=== PATIENT | female | born 1945 | race Caucasian/White ===

== ENCOUNTER 2023-07-01 18:41 | Emergency (ER) | payer MEDICARE, BC, SELFPAY ==
[2023-07-01 18:44] VITALS: BP 182/139; BMI 28.2
[2023-07-01 19:13] LABS: Hematocrit 41.7 % (37.0-47.0); Hemoglobin 14.9 g/dL (12.0-16.0); Mean Corp Hgb Conc. 35.7 g/dL (33.0-37.0); Mean Corpuscular Hgb 29.7 pg (27.0-31.0); Mean Corpuscular Volume 83.1 fL (81.0-99.0); Mean Platelet Volume 8.1 fL (7.4-10.4); Platelet Count 188 10^3/uL (130-400); Red Blood Cell Count 5.02 10^6/uL (4.20-5.40); Red Cell Dist. Width 13.6 % (11.5-14.5); White Blood Cell Count 7.8 10^3/uL (4.8-10.8)
[2023-07-01 19:31] LABS: ALT (SGPT) 36 U/L (0-35); AST (SGOT) 48 U/L (14-36); Albumin 4.4 g/dl (3.5-5.0); Alkaline Phosphatase 140 U/L (38-126); Blood Urea Nitrogen 14 mg/dl (7-17); Calcium 9.6 mg/dl (8.4-10.2); Carbon Dioxide 22 mmol/L (22-30); Chloride 105 mmol/L (98-107); Estimated Creatinine Clearance 82 ml/min; Glucose 133 mg/dl (70-99); Potassium 3.8 mmol/L (3.5-5.1); Sodium 134 mmol/L (135-145); Total Bilirubin 0.7 mg/dl (0.2-1.3); Total Protein 7.6 g/dl (6.3-8.2); eGFR > 60.00
[2023-07-01 19:36] LABS: Troponin I < 0.012 ng/ml
[2023-07-01 19:39] LABS: Atypical Lymphocytes 6 %; Lymphocytes 37 % (20-51); Monocytes 4 % (2-9); Normal RBC Morphology Yes; Platelets Checked Yes; Segmented Neutrophils 53 % (42-75); Total Cells Counted 100
[2023-07-01 20:05] LABS: Absolute Neutrophils -Man Diff 4.1 10^3/uL (1.4-6.5); Band Neutrophils 0 % (0-3)
--- NOTE | 2023-07-01 20:58 | ED.GENMED ---
History of Present Illness
<SARAH Brower - Last Filed: 07/01/23 23:59>
General
Chief Complaint: Headache
Source: patient and family
Exam Limitations: dementia
Time Seen by Provider: 07/01/23 20:20
Nursing documentation reviewed up to this point in time: agreed with
Travel History
Have you had any contact with someone who has COVID-19?: No
Do you have any symptoms of coronavirus? Fever > 100 degrees, chills, cough, shortness of breath, sore throat, loss of taste or smell, muscle aches, or headache?: No
History of Present Illness
History of Present Illness:
This is a 78 year old with PMHx HTN presents for intermittent right sided headache x1 week. Her and son are by bedside providing additional history. She reports dull headache starting 1 week ago that comes and goes. She has taken Tylenol
200mg as needed that provides mild relief. She also reports loss of appetite and drinking less water recently. She also reports a rash starting 1 week ago. She describes the rash as initially burning and stinging that were 'blister-like.' They are
located on her R upper thigh, lower middle back, and R buttock. She denies a Shingles vaccine. She also reports working in the [employer] that has known poison adebayo. She reports burning/stinging has now resolved and blisters have crusted. She denies any
blurry vision, NVD, abdominal pain, sudden onset, worst headache of her life, or photophobia. She denies any head injury or trauma.
Past History
<SARAH Brower - Last Filed: 07/01/23 23:59>
Past History
ED Past Medical History: HTN
ED Past Surgical History: Cholecystectomy
Social History
Tobacco: Non-smoker
Personal:
Living: with family
Family History
Family History: Other (Reviewed and noncontributory)
Review of Systems
<SARAH Brower - Last Filed: 07/01/23 23:59>
Review of Systems
Allergies reviewed?: Yes
Other source history: family
All Other Systems: Not applicable
Constitutional: Reports no symptoms
EENT: Reports no symptoms
Respiratory: Reports no symptoms
Cardiac: Reports no symptoms
ABD/GI: Reports anorexia
: Reports no symptoms
Musculoskeletal: Reports no symptoms
Skin: Reports rash
Neurological: Reports headache
Endocrine: Reports no symptoms
Hematologic/Lymphatic: Reports no symptoms
Psychiatric: Reports no symptoms
Phy Exam
<SARAH Brower - Last Filed: 07/01/23 23:59>
General Physical Exam
General Presentation: well appearing and no apparent distress
General Skin: warm and dry
General Habitus: normal
General Mental: alert
General Hydration: appears well hydrated
ENT Exam
ENT Exam: EOMI, pharynx normal, neck supple and normocephalic
Eye Exam
Eye Exam: PERRL, cornea clear and conjunctiva normal
Cardiovascular Exam
Cardiovascular Exam: regular rate/rhythm, no edema, no murmur and normal peripheral pulses
Pulmonary Exam
Pulmonary Exam: lungs clear, no respiratory distress, no rales, no crackles, no rhonchi, no stridor, no wheezing and no cough
Gastrointestinal Exam
Gastrointestinal Exam: normal bowel sounds, non tender, soft, no organomegaly, no pulsatile mass and non distended
Neurological Exam
Neurological Exam: alert, oriented x3, no motor deficits and speech normal
Musculoskeletal Exam
Musculoskeletal Exam: full ROM and no edema
Skin Exam
Skin Exam: normal color, warm/dry and other (Rash with erythematous crusted lesions on R upper anterior and lateral thigh, lower mid back, and R buttock following L3 dermatome)
Psychiatric Exam
Psychiatric Exam: normal mood/affect
Course
<SARAH Brower - Last Filed: 07/01/23 23:59>
Orders/Labs/Results
Orders:
Orders
07/01/23 18:48
Electrocardiogram (*1) Urgent
Reason for Study: Chest Pain
EKG- Treatment ONCE
07/01/23 19:01
Complete Blood Count/With Diff Urgent
Comprehensive Metabolic Panel Urgent
Manual Differential Urgent
Troponin I Urgent
07/01/23 22:22
Prednisone [Deltasone] 40 mg PO NOW STA
Valacyclovir HCl [Valtrex] 1,000 mg PO NOW STA
07/01/23 22:23
Metoprolol [Lopressor] 25 mg PO NOW STA
Abnormal Lab Results
07/01/23
19:01
Sodium 134 L mmol/L
(135-145)
Glucose 133 H mg/dl
(70-99)
AST 48 H U/L
(14-36)
ALT 36 H U/L
(0-35)
Alkaline Phosphatase 140 H U/L
(38-126)
07/01/23 19:01
07/01/23 19:01
Vital Signs
Initial and Last Documented VS:
Initial Vital Signs
Temp Pulse Resp BP Pulse Ox
98.4 F 94 18 182/139 98
07/01/23 18:44 07/01/23 18:44 07/01/23 18:44 07/01/23 18:44 07/01/23 18:44
Last Documented Vital Signs
Temp Pulse Resp BP Pulse Ox
98.4 F 91 18 207/84 96
07/01/23 18:44 07/01/23 22:00 07/01/23 22:00 07/01/23 22:29 07/01/23 22:00
<Nikos Harris DO - Last Filed: 07/01/23 22:26>
Orders/Labs/Results
Orders:
Orders
07/01/23 18:48
Electrocardiogram (*1) Urgent
Reason for Study: Chest Pain
EKG- Treatment ONCE
07/01/23 19:01
Complete Blood Count/With Diff Urgent
Comprehensive Metabolic Panel Urgent
Manual Differential Urgent
Troponin I Urgent
07/01/23 22:22
Prednisone [Deltasone] 40 mg PO NOW STA
Valacyclovir HCl [Valtrex] 1,000 mg PO NOW STA
07/01/23 22:23
Metoprolol [Lopressor] 25 mg PO NOW STA
Abnormal Lab Results
07/01/23
19:01
Sodium 134 L mmol/L
(135-145)
Glucose 133 H mg/dl
(70-99)
AST 48 H U/L
(14-36)
ALT 36 H U/L
(0-35)
Alkaline Phosphatase 140 H U/L
(38-126)
07/01/23 19:01
07/01/23 19:01
Vital Signs
Initial and Last Documented VS:
Initial Vital Signs
Temp Pulse Resp BP Pulse Ox
98.4 F 94 18 182/139 98
07/01/23 18:44 07/01/23 18:44 07/01/23 18:44 07/01/23 18:44 07/01/23 18:44
Last Documented Vital Signs
Temp Pulse Resp BP Pulse Ox
98.4 F 91 18 207/84 96
07/01/23 18:44 07/01/23 22:00 07/01/23 22:00 07/01/23 22:29 07/01/23 22:00
<SARAH Brower - Last Filed: 07/01/23 23:59>
MDM/Problems Addressed
MDM/Problems Addressed:
Tension headache, stroke, dehydration, Herpes Zoster, Lyme's disease, poison adebayo rash
Stroke considered due to patient age and elevated BP. However, she does not have slurred speech, facial drooping or loss of extremity function. Tension headache considered but patient does not describe it as throbbing b/l headache but rather dull
right sided. I suspect headache is due to dehydration causing a headache since patient has had recent loss of appetite and has been drinking less fluids within the last week. The rash on lower extremity does not seem to be related to the headache,
although could be stressed induced. Lyme's disease was considered but patient declines known tic or recent hiking. Poison adebayo rash considered due to potential recent exposure. However, rash follows L3 dermatome making Herpes zoster most likely. She
describes the initial rash to be burning and stinging with small vesicles. She denies a shingles vaccination making her at risk for Herpes Zoster.
<SARAH Brower - Last Filed: 07/01/23 23:59>
*Critical Care Note
Total Time (30-74mins, 75-104mins- exclusive of procedures): Not Applicable
ED Attending Note
<SARAH Brower - Last Filed: 07/01/23 23:59>
-
Portions of this chart may have been created with voice recognition software.� Occasional wrong word or��sound alike� substitutions may have occurred due to the inherent limitations of voice recognition software.
<Nikos Harris DO - Last Filed: 07/01/23 22:26>
ED Attending Note
Patient seen and examined by attending physician: Yes
I performed the substantive portion of visit, reviewed & personally made and approve the management plan that is documented in note by myself or KAROL.: Yes
ED Attending Note:
This a pleasant 78-year-old female presents with right-sided headache for the last week. She states that her headache is completely resolved at this time. She states that the headache comes and goes but Tylenol relieves it. Patient reports rash
down the right leg that has caused her burning sensation. Patient denies fever, chills, nausea or vomiting. She denies dizziness, chest pain, or shortness of breath. Patient was seen in conjunction with the PA student. I have reviewed and agree
with the history and treatment plan presented. On my independent physical exam, patient is awake, alert, and oriented x3. No focal neurological deficits. Patient refused any treatment for her headache and wishes to be discharged. Right thigh
shows a herpes zoster like rash consistent with shingles. This is located entirely in the right l3 dermatome.
Discharge Plan
Departure
Patient Disposition: Home (Routine Discharge)
Date of Disposition: 07/01/23
Time of Disposition: 22:23
Patient with high blood pressure during this ER visit?: Yes
Condition: Good
Discharge Problem:
Shingles, Headache
Instructions: Shingles (DC), Headache, Adult (DC), BLOOD PRESSURE
Prescriptions:
New
prednisone 20 mg tablet
40 mg PO DAILY 5 Days Qty: 10 0RF
valacyclovir 1 gram tablet
1,000 mg PO Q8H 5 Days Qty: 15 0RF
No Action
oxycodone-acetaminophen 5 MG/325 MG tablet
1 tab PO Q4HPRN PRN (Reason: breakthrough pain) Qty: 7 0RF
oxycodone-acetaminophen 5 MG/325 MG tablet
1 tab PO Q6HPRN PRN (Reason: pain) Qty: 14 0RF
Referrals:
Popeye Padilla MD [Family Provider] -
Activity Restrictions/Additional Instructions:
You can use calamine lotion to the sores
Your prescriptions were sent electronically to the pharmacy that you specified.
It was a pleasure meeting you and taking part in your care. We hope for your continued healing and wellness.
Please read discharge instructions in their entirety. However, they are for general education and may not describe your exact diagnosis at discharge. Information on your ER visit and medical conditions were discussed with you along with appropriate
follow up information...
If indicated, please take your medications as instructed and indicated on discharge paperwork.
Please schedule a follow up appointment as directed. Call to schedule an appointment
Please return to the emergency department with ANY change in, persisting, or worsening of symptoms. If any of your symptoms do not improve, or persist, or become more severe within 6-12 hours, please return to the emergency department for further
care.
Please return to the emergency department if you develop a headache, neck pain/stiffness, fever greater than 100.4F, chest pain, shortness of breath, persistent nausea, vomiting, slurred speech, difficulty walking, numbness/tingling, weakness, signs
of infection or any other symptoms that are worrisome to you.
If you have any questions or concerns please do not hesitate to call the Hospital at or E-mail me directly at [email or web address]
Interventions
Interventions:
*Risk Screen - Suicide Last Done: 07/01/23 18:44
*General Assessment Last Done: 07/01/23 21:04
*Neglect/Abuse Screening Last Done: 07/01/23 18:44
*ED COVID-19 Vaccine History Last Done: 07/01/23 18:44
*Nursing Disposition Last Done: 07/01/23 22:45
ED- Neurological Assessment Last Done: 07/01/23 21:09
Discharge Date and Time
Discharge Date/Time: 07/01/23 22:45
Print Language: SLOVENIAN
[2023-07-01 21:08] VITALS: BP 202/101
[2023-07-01 22:00] VITALS: BP 207/84
[2023-07-01] MEDS: DELTASONE 40 MG PO (22:29)
[2023-07-01] MEDS: VALTREX 1000 MG PO (22:29)
[2023-07-01] MEDS: LOPRESSOR 25 MG PO (22:29)
== END 2023-07-01 22:45 | disposition home or self-care (01) ==
LOC: EMR 18:41
PROVIDERS: Emergency Medicine; EMERGENCY PHYSICIAN Student in an Organized Health Care Education/Training Program; FAMILY PHYSICIAN Internal Medicine Geriatric Medicine
DX: B02.9 Zoster without complications (principal); R51.9 Headache, unspecified; I10 Essential (primary) hypertension; F03.90 Unspecified dementia, unspecified severity, without behavioral disturbance, psychotic disturbance, mood disturbance, and anxiety; Z90.49 Acquired absence of other specified parts of digestive tract
CPT/HCPCS: 99283; 80053; 84484; 85025; 93005

== ENCOUNTER 2023-09-25 08:39 | Emergency (ER) | payer MEDICARE, BC, SELFPAY ==
[2023-09-25 08:44] VITALS: BP 176/98
--- NOTE | 2023-09-25 09:01 | ED.GENMED ---
History of Present Illness
General
Chief Complaint: Cold/Flu/URI Symptoms
Source: patient
Exam Limitations: none
Time Seen by Provider: 09/25/23 08:55
History of Present Illness
History of Present Illness:
See MDM
Past History
Past History
ED Past Medical History: HTN
ED Past Surgical History: Cholecystectomy
Social History
Tobacco: Non-smoker
Personal:
Living: with family
Family History
Family History: Other (Reviewed and noncontributory)
Phy Exam
Physical Exam
Physical Exam:
See MDM
Course
Orders/Labs/Results
Orders:
Orders
09/25/23 09:00
Electrocardiogram (*1) Urgent
Reason for Study: Shortness of Breath
EKG- Treatment ONCE
Ipratropium/Albuterol Sulfate [Duoneb] 3 ml INH R NOW STA
CR Chest - 2 Views Urgent
Comment:
Reason For Exam: Cough, SOB
09/25/23 09:10
Basic Metabolic Panel Urgent
COVID-19 Antigen Urgent
Source: Nasal Swab
Complete Blood Count/With Diff Urgent
NT-proBNP Urgent
Troponin I Urgent
09/25/23 10:49
Dexamethasone Sod Phosphate [Decadron] 10 mg IV NOW STA
Abnormal Lab Results
09/25/23
09:10
Hct 36.3 L %
(37.0-47.0)
Creatinine 0.5 L mg/dL
(0.6-1.0)
Glucose 118 H mg/dl
(70-99)
09/25/23 09:10
09/25/23 09:44
Vital Signs
Initial and Last Documented VS:
Initial Vital Signs
Temp Pulse Resp BP Pulse Ox
98.0 F 104 16 176/98 98
09/25/23 08:44 09/25/23 08:44 09/25/23 08:44 09/25/23 08:44 09/25/23 08:44
Last Documented Vital Signs
Temp Pulse Resp BP Pulse Ox
98.0 F 101 16 137/62 97
09/25/23 08:44 09/25/23 10:31 09/25/23 08:44 09/25/23 11:18 09/25/23 10:47
MDM/Problems Addressed
Differential Diagnosis Includes:
HPI and MDM Narrative:
78-year-old female presenting with cough for the past week or so. This is now associated with increased sputum production and mild shortness of breath. Given the worsening symptoms, they came to the hospital for further evaluation. She denies
fevers, chest pain or leg swelling. Symptoms are not worse with exertion. No sick contacts noted
On exam, patient does have mild rhonchorous breath sounds but only during expiratory phase. There is no leg edema noted. No murmur auscultated. Will give DuoNeb and reassess. Will obtain viral testing, chest x-ray and will obtain EKG and
troponin given duration of symptoms
Physical exam
General: Well appearing and non-toxic
HEENT: protecting airway
Neck: appears supple
CV: No evidence of cyanosis. Regular rate and rhythm. No murmur
Resp: No accessory muscle use. Mild expiratory rhonchorous breath sounds
Abd: Non-distended
Extremities: No deformities. No leg edema
Neuro: alert
Psych: Normal affect
Skin: Intact
Problems Addressed including Acute and Chronic Conditions affecting care:
1. Bronchitis
Acuity: acute
Prognosis: stable
Details: Will obtain chest x-ray to rule out pneumonia. Patient given DuoNeb
Updates
Chest x-ray clear. Troponin negative. On reassessment, patient feeling better after DuoNeb. Will give dose of Decadron and treat as likely bronchitis
Differential Diagnosis (but not limited to): Bronchitis, pneumonia, COVID, ACS
Testing considered: D-dimer but there is no clinical suspicion for DVT
Drug therapy (if applicable): OTC meds, please see d/c instruction regarding Rx drugs
Amount and/or Complexity of Data Reviewed
Clinical info obtained from: Patient
External data reviewed: N/A
Labs I independently reviewed (but not limited to): Troponin normal
Radiology: X-ray independently reviewed: Chest x-ray clear
Pulse Ox: not hypoxic
EKG independently reviewed: Sinus tachycardia, normal axis, no STEMI
General Repair Mechanic: N/A
Critical Care: N/A
Risk of Complication:
Social Determinants of health: Good social support
Discussed with other providers: N/A
Escalation of Care includes Admit/Obs: After being observed in the Emergency Department, pt stable for discharge.
Occasional wrong word or 'sound a like' substitutions may have occurred due to the inherent limitations of voice recognition software. Read the chart carefully and recognize, using context, where substitutions have occurred.
*Critical Care Note
Total Time (30-74mins, 75-104mins- exclusive of procedures): Not Applicable
ED Attending Note
-
Portions of this chart may have been created with voice recognition software.� Occasional wrong word or��sound alike� substitutions may have occurred due to the inherent limitations of voice recognition software.
Discharge Plan
Departure
Patient Disposition: Home (Routine Discharge)
Date of Disposition: 09/25/23
Time of Disposition: 11:27
Patient with high blood pressure during this ER visit?: Yes
Discharge Problem:
Acute bronchitis
Instructions: Acute Bronchitis, Adult (DC), BLOOD PRESSURE
Prescriptions:
New
prednisone 20 mg tablet
40 mg PO DAILY Qty: 10 0RF
albuterol sulfate 90 mcg/actuation HFA aerosol inhaler
2 puff inhalation Q6H PRN (Reason: shortness of breath or wheezing) Qty: 8.5 0RF
No Action
oxycodone-acetaminophen 5 MG/325 MG tablet
1 tab PO Q4HPRN PRN (Reason: breakthrough pain) Qty: 7 0RF
oxycodone-acetaminophen 5 MG/325 MG tablet
1 tab PO Q6HPRN PRN (Reason: pain) Qty: 14 0RF
prednisone 20 mg tablet
40 mg PO DAILY 5 Days Qty: 10 0RF
valacyclovir 1 gram tablet
1,000 mg PO Q8H 5 Days Qty: 15 0RF
Referrals:
Popeye Padilla MD [Family Provider] -
Activity Restrictions/Additional Instructions:
Please return for any worsening symptoms.
You may return at any time if you have further concerns.
Please follow up with your doctor at the first available appointment, preferably this week.
You can use the inhaler every 4 hours as needed for shortness of breath or wheezing. Please start the steroid prescription tomorrow.
Thank you for choosing [facility].
Interventions
Interventions:
*Risk Screen - Suicide Last Done: 09/25/23 09:17
*General Assessment Last Done: 09/25/23 09:17
*Neglect/Abuse Screening Last Done: 09/25/23 09:17
ED- Fall Risk Assessment Last Done: 09/25/23 11:23
ED- Pulmonary Assessment Last Done: 09/25/23 09:17
Discharge Date and Time
Print Language: MALAY
[2023-09-25] MEDS: DUONEB 3 ML INH (09:16)
[2023-09-25 09:17] VITALS: BMI 28.1
[2023-09-25 09:45] LABS: Blood Urea Nitrogen 16 mg/dl (7-17); Calcium 9.5 mg/dl (8.4-10.2); Carbon Dioxide 26 mmol/L (22-30); Chloride 105 mmol/L (98-107); Estimated Creatinine Clearance 79 ml/min; Glucose 118 mg/dl (70-99); Sodium 138 mmol/L (135-145); eGFR > 60.00
[2023-09-25 09:49] LABS: COVID-19 Antigen Negative (Negative)
[2023-09-25 09:52] LABS: NT-proBNP < 20.0 pg/ml; Troponin I < 0.012 ng/ml
[2023-09-25 10:24] VITALS: BP 141/53
[2023-09-25] MEDS: DECADRON 10 MG IV (11:13)
[2023-09-25 11:14] LABS: % Basophils 0.9 % (0-2); % Eosinophils 4.8 % (0-6); % Immature Granulocytes 0.3 % (0-0.5); % Lymphocytes 24.5 % (20.5-51.1); % Monocytes 6.2 % (1.7-9.3); % Neutrophils 63.3 % (42.2-75.2); Absolute Basophils 0.1 10^3/uL (0-0.2); Absolute Eosinophils 0.4 10^3/uL (0-0.7); Absolute Lymphocytes 1.9 10^3/uL (1.2-3.4); Absolute Monocytes 0.5 10^3/uL (0.1-0.6); Absolute Neutrophils 4.9 10^3/uL (1.4-6.5); Hematocrit 36.3 % (37.0-47.0); Mean Corp Hgb Conc. 35.8 g/dL (33.0-37.0); Mean Corpuscular Hgb 30.9 pg (27.0-31.0); Mean Corpuscular Volume 86.2 fL (81.0-99.0); Mean Platelet Volume 8.7 fL (7.4-10.4); Nucleated Red Blood Cells % 0 %; Platelet Count 243 10^3/uL (130-400); Red Blood Cell Count 4.21 10^6/uL (4.20-5.40); Red Cell Dist. Width 13.5 % (11.5-14.5); White Blood Cell Count 7.8 10^3/uL (4.8-10.8)
[2023-09-25 11:18] VITALS: BP 137/62
== END 2023-09-25 11:48 | disposition home or self-care (01) ==
LOC: EMR 08:39
PROVIDERS: EMERGENCY PHYSICIAN Student in an Organized Health Care Education/Training Program; FAMILY PHYSICIAN Internal Medicine Geriatric Medicine
DX: J06.9 Acute upper respiratory infection, unspecified (principal)
CPT/HCPCS: 99283; 94640; 96374; 71046; 80048; 83880; 84484; 85025; 87811; 93005

== ENCOUNTER → 2024-12-03 07:24 | Outpatient (REF) | payer MEDICARE, BC, SELFPAY ==
[2024-12-03 09:32] LABS: Hematocrit 40.0 % (37.0-47.0); Hemoglobin 13.5 g/dL (12.0-16.0); Mean Corp Hgb Conc. 33.8 g/dL (33.0-37.0); Mean Corpuscular Volume 88.5 fL (81.0-99.0); Nucleated Red Blood Cells % 0 %; Platelet Count 192 10^3/uL (130-400); Red Cell Dist. Width 13.7 % (11.5-14.5)
[2024-12-03 09:57] LABS: ALT (SGPT) 21 U/L (0-35); AST (SGOT) 21 U/L (14-36); Albumin 4.4 g/dl (3.5-5.0); Alkaline Phosphatase 111 U/L (38-126); Blood Urea Nitrogen 13 mg/dl (7-17); Calcium 9.3 mg/dl (8.4-10.2); Carbon Dioxide 25 mmol/L (22-30); Chloride 109 mmol/L (98-107); Glucose 101 mg/dl (70-99); HDL Cholesterol 41 mg/dl; LDL Cholesterol, Calculated 76 mg/dl; Potassium 4.2 mmol/L (3.5-5.1); Sodium 141 mmol/L (135-145); Total Protein 7.2 g/dl (6.3-8.2); Very Low Density Lipoprotein 53 mg/dl (0-30); eGFR > 60.00
[2024-12-03 10:33] LABS: Vitamin D, 25-OH*** 64.6 ng/mL (30-80)
== END ==
LOC: REG 07:24
PROVIDERS: ATTENDING PHYSICIAN Nurse Practitioner Adult Health; FAMILY PHYSICIAN Internal Medicine Geriatric Medicine; OTHER PHYSICIAN Nurse Practitioner Family
DX: R41.3 Other amnesia (principal); I10 Essential (primary) hypertension; E78.2 Mixed hyperlipidemia; E56.9 Vitamin deficiency, unspecified; Z00.00 Encounter for general adult medical examination without abnormal findings; J20.9 Acute bronchitis, unspecified; Z09 Encounter for follow-up examination after completed treatment for conditions other than malignant neoplasm; E55.9 Vitamin D deficiency, unspecified
CPT/HCPCS: 36415; 80053; 80061; 82306; 84443; 85025